=== PATIENT | male | born 1965 | race Two or more races ===

== ENCOUNTER 2022-02-05 10:00 | Inpatient (IN) | payer OTHER ==
[~2022-02-05] VITALS: Ht 182.9 cm; Wt 88.0 kg
[2022-02-10] MEDS ORDERED: MEDROLPACK PO (10:13)
[2022-02-10] MEDS ORDERED: AMOX-CLAV 875-1 EAC1 PO (10:13)
[2022-02-10] MEDS ORDERED: NEURONTIN800 MG PO (10:13)
[2022-02-10] MEDS ORDERED: PERCOCET 5-3251 EACH PO (10:13)
[2022-02-10] MEDS ORDERED: COLACE100 MG PO (10:13)
== END 2022-02-12 10:50 | disposition home or self-care (01) | DRG 455 ==
LOC: O/R 02-10 05:45 → SURH 02-10 10:00 → PED 02-10 15:39
PROVIDERS: ADMIT Orthopaedic Surgery Orthopaedic Surgery of the Spine; ATTEND Orthopaedic Surgery Orthopaedic Surgery of the Spine
PROC: 0SG0071 Fusion of Lumbar Vertebral Joint with Autologous Tissue Substitute, Posterior Approach, Posterior Column, Open Approach (ICD-10-PCS; 2022-02-10)
PROC: 0ST20ZZ Resection of Lumbar Vertebral Disc, Open Approach (ICD-10-PCS; 2022-02-10)
PROC: 0QB30ZZ Excision of Left Pelvic Bone, Open Approach (ICD-10-PCS; 2022-02-10)
PROC: 07DR0ZZ Extraction of Iliac Bone Marrow, Open Approach (ICD-10-PCS; 2022-02-10)
PROC: 0SG00A0 Fusion of Lumbar Vertebral Joint with Interbody Fusion Device, Anterior Approach, Anterior Column, Open Approach (ICD-10-PCS; principal; 2022-02-10 10:30)
DX: M41.86 Other forms of scoliosis, lumbar region (principal); M48.062 Spinal stenosis, lumbar region with neurogenic claudication; M51.26 Other intervertebral disc displacement, lumbar region; M96.1 Postlaminectomy syndrome, not elsewhere classified